=== PATIENT | male | born 1980 | race Caucasian/White ===

== ENCOUNTER 2024-06-15 04:32 | Day surgery (SDC) | payer BC, SELFPAY ==
[2024-05-25 15:00] VITALS: BMI 31.9
--- NOTE | 2024-05-25 15:07 | PC.NURSE ---
Report to the Outpatient Waiting Room, entrance under the green pavilion located off [facility], at time _1130_ on date _[id number]_. Planned Procedure Time: _130pm_.? Time changes happen often and if your time is changed the preop area will call you the afternoon before. - You and your visitor will be asked to self-screen and do not enter if you have any COVID symptoms. Please call surgeon if you need to reschedule. - A mask is optional within the hospital at this time. Patients may have clear liquids (water, carbonated beverages, clear teas, apple juice) until 3 hours prior to surgery with a maximum of 20 ounces. - No food from midnight until time of surgery and no smoking Take only the following medications with a SIP of water on the morning of surgery: ___None DO NOT STOP ANY OF YOUR OTHER PRESCRIPTION MEDICATIONS PRIOR TO SURGERY EXCEPT THE FOLLOWING Medications to discontinue per physician ___None___ Date to take last dose Please no make-up, nail australian, hairspray, perfume, deodorant, or body powder the day of surgery.? No jewelry (including any body piercings) or valuables the day of surgery, leave them at home.? Please take a shower or bath the night before, or the morning of, surgery with an antibacterial soap.? Wear comfortable, loose fitting clothing.? - Jewelry must be removed prior to entering the operating room.? Rings and piercings that are not removed may be cut off. - The hospital will not accept responsibility for valuables.? - Please leave all valuables, including medications, at home the day of surgery. If you are going home after surgery, a licensed truck driver heavy must drive you home.? - NO public transportation without another adult if you receive anesthesia. - We recommend that an adult stay with you for 24 hours following discharge. - We also recommend that you do not drive, make important decision, drink alcoholic beverages, or take any drugs that were not prescribed by your health care provider for at least 24 hours after your discharge time. Follow any additional instructions given to you from your surgeon. Telephone instructions given to __Ryan___and asked if any additional questions and then verbalized understanding. Patient advised to call surgeon office or pre surgery nurse liaison [phone] if any additional questions.
--- NOTE | 2024-06-11 08:41 | PC.NURSE ---
Addendum entered by Manjinder Long RN 06/11/24 15:04: Surgery date is 06-15-2024. Original Note: Report to the Outpatient Waiting Room, entrance under the green pavilion located off [facility], at time _1200_ on date _[id number]_. Planned Procedure Time: _2pm_.? Time changes happen often and if your time is changed the preop area will call you the afternoon before. - You and your visitor will be asked to self-screen and do not enter if you have any COVID symptoms. Please call surgeon if you need to reschedule. - A mask is optional within the hospital at this time. Patients may have clear liquids (water, carbonated beverages, clear teas, apple juice) until 3 hours prior to surgery with a maximum of 20 ounces. - No food from midnight until time of surgery and no smoking Take only the following medications with a SIP of water on the morning of surgery: ___None DO NOT STOP ANY OF YOUR OTHER PRESCRIPTION MEDICATIONS PRIOR TO SURGERY EXCEPT THE FOLLOWING Medications to discontinue per physician ___None___ Please no make-up, nail albanian, hairspray, perfume, deodorant, or body powder the day of surgery.? No jewelry (including any body piercings) or valuables the day of surgery, leave them at home.? Please take a shower or bath the night before, or the morning of, surgery with an antibacterial soap.? Wear comfortable, loose fitting clothing.? - Jewelry must be removed prior to entering the operating room.? Rings and piercings that are not removed may be cut off. - The hospital will not accept responsibility for valuables.? - Please leave all valuables, including medications, at home the day of surgery. If you are going home after surgery, a licensed tow motor driver must drive you home.? - NO public transportation without another adult if you receive anesthesia. - We recommend that an adult stay with you for 24 hours following discharge. - We also recommend that you do not drive, make important decision, drink alcoholic beverages, or take any drugs that were not prescribed by your health care provider for at least 24 hours after your discharge time. Follow any additional instructions given to you from your surgeon. Telephone instructions given to __Ryan___and asked if any additional questions and then verbalized understanding. Patient advised to call surgeon office or pre surgery nurse liaison [phone] if any additional questions.
--- NOTE | 2024-06-15 13:05 | WPDANESEPPF ---
Anes - Initial Pre Proc Eval Procedure: Operation Date: 06/15/24 14:00 Proposed Procedures p Excision of Posterior Neck Mass - Steve Martini DO Date/Time: 06/15/24 13:05 Surgeon: Steve Martini DO Pre Op Diagnosis: Neck Mass (3cm) Patient Data Age: 44 Gender: M Height: 1.91 m Weight: 106.8 kg Allergies Allergy/AdvReac Type Severity Reaction Status Date / Time No Known Allergies Allergy Verified 06/15/24 12:45 Home Medications Medication Instructions Recorded Confirmed Type No Home Medications 11/25/20 06/15/24 History Patient hx anesthesia problems: none Family hx anesthesia problems: none Results Review: All pre-operative results and documents have been reviewed as part of the pre-operative evaluation. [facility] Past Medical History Medical History (Updated 06/15/24 @ 13:05 by Niles Barron MD) BMI 29.0-29.9,adult Testicle cancer (~2003) Family History Family History Other Cancer of neck Cerebrovascular accident Diabetes mellitus Lung cancer Social History Social History Smoking packs per day: 1 Smoking cigarettes per day: 20.0 Years smoked: 13 Smoking pack-years: 13.00 Smoking status: Former smoker Tobacco type: cigarettes Second hand tobacco smoke exposure: No Smoking end date: 05/25/08 Alcohol intake: current Alcohol use details: consumes a couple beers rarely Substance use: never Substance use type: does not use Do You Feel Safe in your Home?: Yes Lack of Transportation: No Lack of Food: Never True Current Housing: I Have Housing Concerned About Future Housing: No Difficulty Paying Gas/Electric Bills: No Difficulty Paying for Meds: No Currently Unemployed: No Education: Bachelor's Degree Difficulty w/ Childcare or Family Care: No Living arrangements: with family Gender identity (if verbalized by the patient): Male Spiritual care concerns: No Anes - Eval Final PreProcedure Day of Procedure 06/15/24 13:05 Patient weight: overweight Heart: regular rate and rhythm Lungs: clear to auscultation Airway: Mallampati scale class II Neurological: alert and oriented Last oral intake: >/= 8 hours ASA classification: II Emergent: no Anesthetic plan: proceed Anesthesia type and monitoring: general GIVS and standard monitoring Results Review: All pre-operative results and documents have been reviewed as part of the pre-operative evaluation. Informed Consent: The patient's anesthetic plan and its attendant risks and benefits were discussed with the patient/family/POA. Questions were solicited and answers provided to the satisfaction of the patient/family/POA.
--- NOTE | 2024-06-15 14:08 | P.HP_ITS ---
H&P: HPI History of Present Illness Date/Time: 06/15/24 14:08 Chief Complaint: posterior neck mass Narrative: This is a 44-year-old man who presents a posterior neck mass. He had noticed this mass for a couple years and occasionally was able to express some drainage from it. He was found to have a posterior neck mass consisted with a cyst. He now presents for excision. He denies any changes since last seen in the office. Review of Systems Review of Systems: All systems reviewed & are unremarkable except as noted in HPI and below Constitutional: Constitutional: Denies chills, Denies fever(s), Denies headache(s) and Denies weight loss Eyes: Eyes: Denies change in vision ENT: Denies dizziness, Denies headache(s), Denies neck mass and Denies throat swelling Cardiovascular: Cardiovascular: Denies chest pain, Denies lightheadedness and Denies dyspnea Respiratory: Respiratory: Denies cough, Denies dyspnea and Denies wheezing Gastrointestinal: Gastrointestinal: Denies abdominal pain, Denies change in bowel habits, Denies nausea and Denies vomiting Genitourinary: Genitourinary: Denies hematuria and Denies dysuria Musculoskeletal: Musculoskeletal: Reports as per HPI Integumentary/Breasts: Skin/Breast: Reports as per HPI Neurologic: Denies dizziness and Denies headache(s) Allergic/Immunologic: Allergic/Immunologic: Denies throat swelling and Denies wheezing [facility] Past Medical History Medical History (Updated 06/15/24 @ 13:05 by Niles Barron MD) BMI 29.0-29.9,adult Testicle cancer (~2003) Family History Family History Other Cancer of neck Cerebrovascular accident Diabetes mellitus Lung cancer Social History Social History Smoking packs per day: 1 Smoking cigarettes per day: 20.0 Years smoked: 13 Smoking pack-years: 13.00 Smoking status: Former smoker Tobacco type: cigarettes Second hand tobacco smoke exposure: No Smoking end date: 05/25/08 Alcohol intake: current Alcohol use details: consumes a couple beers rarely Substance use: never Substance use type: does not use Do You Feel Safe in your Home?: Yes Lack of Transportation: No Lack of Food: Never True Current Housing: I Have Housing Concerned About Future Housing: No Difficulty Paying Gas/Electric Bills: No Difficulty Paying for Meds: No Currently Unemployed: No Education: Bachelor's Degree Difficulty w/ Childcare or Family Care: No Living arrangements: with family Gender identity (if verbalized by the patient): Male Spiritual care concerns: No Meds Home Medications and Allergies Home Medications Medication Instructions Recorded Confirmed Type No Home Medications 11/25/20 06/15/24 History Allergies Allergy/AdvReac Type Severity Reaction Status Date / Time No Known Allergies Allergy Verified 06/15/24 12:45 Exam Const: General: no acute distress and alert Orientation/consciousness: patient oriented x3 HENMT: Head: normocephalic and atraumatic Ears: hearing grossly normal bilaterally Face/Nose/Sinus: Normal nares present Mouth: Yes Normal oral and palatal mucosa present Eyes: Periorbital: periorbital findings normal Sclera: sclerae normal EOM: EOMs intact bilaterally Neck: Neck: normal visual inspection, no lymphadenopathy and trachea midline Chest: Chest palpation & inspection: normal inspection of the chest Resp: Effort & Inspection: normal respiratory effort Auscultation: clear to auscultation bilaterally Cardio: Jugular venous distension: no JVD Rate: regular rate Rhythm: regular rhythm Heart sounds: S1 normal heart sound present and S2 normal heart sound present Peripheral pulses: Peripheral pulses 2+ throughout GI: Inspection: normal to inspection GI Palp: Yes Soft to palpation, No Tenderness to palpation present (GI), No Guarding due to palpation present (GI) and No Rebound tenderness present Percussion: Yes normal to percussion Auscultation: normal bowel sounds : General: Yes no CVA tenderness Back/Spine/Pelvis: Back: no CVA tenderness Skin: Other: 3 cm posterior neck mass consistent with an epidermal inclusion cyst Neuro: General: patient oriented x3, no focal motor deficits and CN's II-XI intact bilaterally Cognition (Neuro): normal cognition Speech: normal speech Motor exam (neuro): 5/5 motor strength present throughout Extrem: General: capillary refill normal and no clubbing, cyanosis or edema Assessment and Plan Assessment and plan (1) Neck mass: Code(s): R22.1 - Localized swelling, mass and lump, neck Status: Acute Assessment and Plan: I have recommended excision of 3 cm posterior neck mass. I have discussed the procedure, risks, benefits, and alternatives with the patient. All questions answered. No changes since last seen in office.
--- NOTE | 2024-06-15 14:08 | WPDHPUPDATE1 ---
History and Physical Update Update Date/Time: 06/15/24 14:08 History and Physical has been reviewed, including an updated exam of the patient. There are NO changes in the patient's condition. Risks, benefits, and alternatives have been discussed and questions answered. Patient agrees to proceed with procedure.
[2024-06-15] MEDS: LIDO 1%/EPINEPHRINE 1:100,000 50 ML VIAL INFILTRATE (14:33)
--- NOTE | 2024-06-15 14:52 | W.PM.PROC2 ---
Procedure Note - Detailed Date of Procedure 06/15/24 Pre-op Diagnosis Neck Mass (3cm) Post-op Diagnosis Same Procedure Performed Excision of 3 cm posterior neck mass Surgeon Steve Martini, DO Anesthesia MAC and Local (1% lidocaine with epinephrine) Indications This is a 44-year-old man who presented with a mass on his posterior neck that had been present for several years. It has gotten larger recently and occasionally has some drainage. He was found to have a 3 cm posterior neck mass that appeared consistent with an inclusion cyst. Discussions were made with the patient about treatment options and decision was made to proceed with excision of 3 cm posterior neck mass. Findings The 3 cm posterior neck mass was completely excised. This appeared to have the consistency of an epidermal inclusion cyst. It was completely excised intact and sent to the lab for pathology. Description of Procedure Procedure as well as risks, benefits, and alternatives were discussed with the patient. Written consent was obtained and placed in chart prior to procedure. Patient was brought back to surgical suite. He was placed in right lateral decubitus position. Time-out was done to confirm patient and procedure. IV sedation was then administered by the anesthesia department. His posterior neck region was prepped and draped in sterile fashion using chlorhexidine prep. 1% lidocaine with epinephrine was infiltrated locally around the mass. A 3 cm elliptical incision was made around the neck mass using a 15 blade scalpel. The mass was sharply excised carefully using the 15 blade scalpel. The mass was completely excised from the subcutaneous attachments and sent to the lab for pathology. The wound bed was then inspected. Hemostasis was achieved with electrocautery. No other abnormalities were noted. The skin edges were then reapproximated using 3-0 nylon vertical mattress interrupted sutures. Bacitracin ointment was then applied followed by 4 x 4 gauze and tape. Patient was then awakened from anesthesia and transferred to recovery. Estimated Blood Loss 5 Complications No immediate complications Condition Stable Disposition Same day [facility] Billing Surgery - Charge Forward: Surgery Billing
[2024-06-15 14:56] VITALS: BP 103/59; PULSE 82; RESP 16; O2SAT 96
[2024-06-15] MEDS: LACTATED RINGERS 1,000 ML 30 ML IV CONT (14:56)
[2024-06-15 15:15] VITALS: BP 120/79; PULSE 71; RESP 16
[2024-06-15 15:45] VITALS: BP 120/75; PULSE 66
== END 2024-06-15 15:55 | disposition home or self-care (01) ==
PROVIDERS: PCP Family Medicine; Visit Provider Surgery
PROC: (CPT 11423; principal; 2024-06-15 14:00)
DX: L72.0 Epidermal cyst (principal); Z87.891 Personal history of nicotine dependence
CPT/HCPCS: 11423; 88304; A9270; J2003; J2004; J2250; J2371; J2405; J2704; J3010; J7120

== ENCOUNTER 2025-02-08 01:01 | Day surgery (SDC) | payer BC, SELFPAY ==
[2025-01-31 09:18] VITALS: BMI 29.9
[2025-02-08] VITALS (7 sets, daily range): BP systolic 68–129; BP diastolic 48–96; PULSE 55–110; RESP 18–21; TEMP 36.3; O2SAT 97–99; BMI 29.3
--- OUTSIDE RECORDS SUMMARY | 2025-02-08 01:03 | XMS_ITS | Clinical Summary ---
Author Organization [facility] Address [address] [place] [address] Phone Care Team Providers Care Trans Router Name Role Phone Unavailable Primary Care Provider Unavailabl e Medications cyclobenzaprine (FLEXERIL) 10 mg tablet Take 1 Tablet (10 mg) by mouth 3 times daily as needed for Spasm. 15 Tablet 02/19/2024 Active Encounters Date Type Department Care Team Description 02/05/2025 External Device Data [facility] Provider, Abstract 02/05/2025 External Device Data [facility] Provider, Abstract 02/05/2025 External Device Data [facility] Provider, Abstract 2025 External Device Data [facility] Provider, Abstract 01/08/2025 External Device Data [facility] Provider, Abstract 01/01/2025 External Device Data [facility] Provider, Abstract 12/20/2024 External Device Data [facility] Provider, Abstract 12/20/2024 External Device Data [facility] Provider, Abstract 12/19/2024 External Device Data [facility] Provider, Abstract 12/18/2024 External Device Data [facility] Provider, Abstract 12/04/2024 External Device Data [facility] Provider, Abstract 11/13/2024 External Device Data [facility] Provider, Abstract from Last 3 Months Social History Tobacco Use Types Packs/Day Years Used Date Smoking Tobacco: Unknown Tobacco Cessation:Counseling Given: Not Answered Feeling Safe Answer Date Recorded Are you in a relationship wi th someone who hurts you emotionally and/or physically? No 02/19/2024 Sex and Gender Information Value Date Recorded Sex Assigned at Not on file Legal Sex Male 12:06 PM CDT Gender Identity Not on file Sexual Orientation Not on file Last Filed Vital Signs Vital Sign Reading Time Taken Comments Blood Pressure 139/96 02/19/2024 12:17 PM CDT Pulse 111 02/19/2024 12:17 PM CDT Temperature 36.9 C (98.5 F) 02/19/2024 12:17 PM CDT Respiratory Rate 18 02/19/2024 12:17 PM CDT Oxygen Saturation 99% 02/19/2024 12:17 PM CDT Inhaled Oxygen Concentration - - Weight 108.9 kg (240 lb) 02/19/2024 12:17 PM CDT Height 190.5 cm (6' 3) 02/19/2024 12:17 PM CDT Body Mass Index 30 02/19/2024 12:17 PM CDT Plan of Treatment Health Maintenance Due Date Last Done Comments Pre-Diabetes and Diabetes Screening 1979 DTAP/TDAP/TD VACCINES (1 - Tdap) 1998 HEPATITIS B VACCINES (1 of 3 - 19+ 3-dose series) 1998 COLORECTAL SCREENING 01/17/2024 Colorectal Cancer Screening 01/17/2024 FIT-DNA Q 3 years 01/17/2024 FIT/FOBT Q 1 year 01/17/2024 Flex Sig/CT Colonography Q 5 years 01/17/2024 INFLUENZA VACCINE (#1) 2025 HPV VACCINES Aged Out No longer eligi ble based on patient's age to complete this topic Insurance [id number] BLUE ACCESS CHOICE [facility] [place] [address] [place] [address] BLUE ACCESS CHOICE
[2025-02-08] MEDS: LACTATED RINGERS 1,000 ML 150 ML IV CONT (07:31)
--- NOTE | 2025-02-08 07:47 | WPDANESEPPF ---
Anes - Initial Pre Proc Eval Procedure: Operation Date: 02/08/25 08:00 Proposed Procedures p Screening Colonoscopy - Brendon Smith MD Date/Time: 02/08/25 07:47 Surgeon: Brendon Smith MD Pre Op Diagnosis: Encounter for screening for malignant neoplasm of Patient Data Age: 45 Gender: M Height: 1.91 m Weight: 106.5 kg Last Vital Signs Temp 36.3 C L 02/08/25 07:20 Pulse 71 02/08/25 07:39 Resp 20 02/08/25 07:20 BP 95/59 L 02/08/25 07:39 Pulse Ox 97 02/08/25 07:20 O2 Del Method Room Air 02/08/25 07:20 Allergies Allergy/AdvReac Type Severity Reaction Status Date / Time No Known Allergies Allergy Verified 02/08/25 07:18 Home Medications ?Medication ?Instructions ?Recorded ?Confirmed ?Type OMEGA XL 1 cap PO DAILY 01/31/25 02/08/25 History balance of nature 2 gummy PO DAILY 01/31/25 02/08/25 History multivitamin (Daily Multi-Vitamin 1 tablet PO DAILY 01/31/25 02/08/25 History tablet) Patient hx anesthesia problems: none Family hx anesthesia problems: none Results Review: All pre-operative results and documents have been reviewed as part of the pre-operative evaluation. [facility] Past Medical History Medical History BMI 29.0-29.9,adult Testicle cancer (~2003) Surgical History Surgical History H/O excision of mass 06/15/24 Excision of 3 cm posterior neck mass Dr. Martini Family History Family History Other Cancer of neck Cerebrovascular accident Diabetes mellitus Lung cancer Social History Social History Smoking packs per day: 1 Smoking cigarettes per day: 20.0 Years smoked: 13 Smoking pack-years: 13.00 Smoking status: Former smoker Tobacco type: cigarettes Second hand tobacco smoke exposure: No Smoking end date: 05/25/08 Alcohol intake: current Alcohol use details: consumes a couple beers rarely Substance use: never Substance use type: does not use Do You Feel Safe in your Home?: Yes Lack of Transportation: No Lack of Food: Never True Current Housing: I Have Housing Concerned About Future Housing: No Difficulty Paying Gas/Electric Bills: No Difficulty Paying for Meds: No Currently Unemployed: No Education: Bachelor's Degree Difficulty w/ Childcare or Family Care: No Living arrangements: with family Gender identity (if verbalized by the patient): Male Spiritual care concerns: No Anes - Eval Final PreProcedure Day of Procedure 02/08/25 07:47 Patient weight: overweight Heart: regular rate and rhythm Lungs: clear to auscultation Airway: Mallampati scale class II Neurological: alert and oriented Last oral intake: >/= 8 hours ASA classification: II Emergent: no Anesthetic plan: proceed Anesthesia type and monitoring: general GIVS and standard monitoring Results Review: All pre-operative results and documents have been reviewed as part of the pre-operative evaluation. Informed Consent: The patient's anesthetic plan and its attendant risks and benefits were discussed with the patient/family/POA. Questions were solicited and answers provided to the satisfaction of the patient/family/POA.
--- NOTE | 2025-02-08 07:50 | SUR.PREOP ---
Pt became diaphoretic, pale, and felt dizzy approximately 5 minutes after IV was started. Pt placed in Trendelenburg position, cool cloth applied, and VS taken. Denied chest pain. Dr. Stokes made aware. Pt recovered shortly after and is now feeling better.
--- NOTE | 2025-02-08 08:13 | PM.HPGS ---
History of Present Illness History of Present Illness Consent: Risks, benefits, and alternatives have been discussed and questions answered. Patient agrees to proceed with procedure. Chief complaint: Encounter for screening for malignant neoplasm of Narrative: Jah Galan is a 45 year old male here for first screening colonoscopy Review of Systems Review of Systems: All systems reviewed & are unremarkable except as noted in HPI and below PMFSH Past Medical History Medical History (Updated 02/08/25 @ 08:14 by Brendon Smith MD) Colon cancer screening BMI 29.0-29.9,adult Testicle cancer (~2003) Surgical History Surgical History H/O excision of mass 06/15/24 Excision of 3 cm posterior neck mass Dr. Martini Family History Family History Other Cancer of neck Cerebrovascular accident Diabetes mellitus Lung cancer Social History Social History Smoking packs per day: 1 Smoking cigarettes per day: 20.0 Years smoked: 13 Smoking pack-years: 13.00 Smoking status: Former smoker Tobacco type: cigarettes Second hand tobacco smoke exposure: No Smoking end date: 05/25/08 Alcohol intake: current Alcohol use details: consumes a couple beers rarely Substance use: never Substance use type: does not use Do You Feel Safe in your Home?: Yes Lack of Transportation: No Lack of Food: Never True Current Housing: I Have Housing Concerned About Future Housing: No Difficulty Paying Gas/Electric Bills: No Difficulty Paying for Meds: No Currently Unemployed: No Education: Bachelor's Degree Difficulty w/ Childcare or Family Care: No Living arrangements: with family Gender identity (if verbalized by the patient): Male Spiritual care concerns: No Meds Home Medications and Allergies Home Medications ?Medication ?Instructions ?Recorded ?Confirmed ?Type OMEGA XL 1 cap PO DAILY 01/31/25 02/08/25 History balance of nature 2 gummy PO DAILY 01/31/25 02/08/25 History multivitamin (Daily Multi-Vitamin 1 tablet PO DAILY 01/31/25 02/08/25 History tablet) Allergies Allergy/AdvReac Type Severity Reaction Status Date / Time No Known Allergies Allergy Verified 02/08/25 07:18 Vital Signs Vital Signs - 24 hr 02/08/25 07:20 02/08/25 07:30 02/08/25 07:39 Temperature 97.4 F L Pulse Rate 110 H 55 L 71 Respiratory Rate 20 Blood Pressure 129/96 H 68/48 L 95/59 L Pulse Oximetry 97 Oxygen Delivery Room Air 02/08/25 07:49 Temperature Pulse Rate 79 Respiratory Rate Blood Pressure 109/68 Pulse Oximetry Oxygen Delivery Exam Const: General: comfortable and no acute distress HENMT: Face/Nose/Sinus: Normal nares present Eyes: General: appearance normal, both eyes and all related structures Neck: Neck: no JVD Resp: Auscultation: clear to auscultation bilaterally Cardio: Rate: regular rate Rhythm: regular rhythm GI: Inspection: non-distended GI Palp: Yes Soft to palpation Skin: General skin exam: normal color Neuro: General: gait normal Speech: normal speech Extrem: General: normal to inspection Psych: Mental Status: mental status grossly normal Assessment and Plan Assessment and plan (1) Colon cancer screening: Code(s): Z12.11 - Encounter for screening for malignant neoplasm of colon Status: Acute Assessment and Plan: colonoscopy
== END 2025-02-08 08:55 | disposition home or self-care (01) ==
PROVIDERS: PCP Family Medicine; Referring Provider Student in an Organized Health Care Education/Training Program; Visit Provider Internal Medicine Gastroenterology
PROC: 0DJD8ZZ Inspection of Lower Intestinal Tract, Via Natural or Artificial Opening Endoscopic (ICD-10-PCS; CPT 45378; principal; 2025-02-08 08:00)
DX: Z12.11 Encounter for screening for malignant neoplasm of colon (principal); K64.8 Other hemorrhoids; Z98.890 Other specified postprocedural states; Z87.891 Personal history of nicotine dependence; Z85.47 Personal history of malignant neoplasm of testis; Z80.1 Family history of malignant neoplasm of trachea, bronchus and lung; Z80.8 Family history of malignant neoplasm of other organs or systems
CPT/HCPCS: 45378; J2003; J2704; J7120